=== PATIENT | female | born 1950 | race Caucasian/White ===

== ENCOUNTER 2019-07-21 16:47 | Emergency (ER) | payer MEDICARE, MEDICAID ==
[~2019-07-21] VITALS: Ht 160 cm; Wt 87.0 kg
[~2019-07-21 16:47] MED LIST: AMOX500T2 PO; CAPT1TAB7 PO; P20 PO
[2019-07-21] MEDS ORDERED: HYDROCODONE/ACETAMINOPHEN 5/325MG TABLET PO ONE (18:30)
[2019-07-21] MEDS ORDERED: LIDOCAINE HCL 1% 20ML VIAL (Pyxis) INJ INFIL ONE (18:30)
[2019-07-21 19:23] VITALS: BP 177/87
== END 2019-07-21 19:25 | disposition home or self-care (01) ==
LOC: ER 16:58
DX: L60.0 Ingrowing nail (principal); M79.674 Pain in right toe(s); E78.00 Pure hypercholesterolemia, unspecified; I10 Essential (primary) hypertension; Z90.49 Acquired absence of other specified parts of digestive tract; Z98.890 Other specified postprocedural states; Z79.899 Other long term (current) drug therapy; Z86.718 Personal history of other venous thrombosis and embolism
CPT/HCPCS: 99283; J3490